=== PATIENT | female | born 1955 | race Caucasian/White ===

== ENCOUNTER → 2017-05-13 | Outpatient (CLI) | payer OTHER | LOC: BMCIMAGING 14:53 | PROVIDERS: ATTEND Family Medicine | DX: Z12.31 Encounter for screening mammogram for malignant neoplasm of breast (principal) | CPT/HCPCS: G0202 ==

== ENCOUNTER 2017-09-11 10:39 | Emergency (ER) | payer OTHER ==
[2017-09-11 10:56] VITALS: RESP 16; TEMP 98.6
[2017-09-11] MEDS ORDERED: PROPARACAINE 0.5% 15 ML OPHT DROP OP ONE (12:09)
--- NOTE | 2017-09-11 12:09 | EDPHY ---
H & P Time Seen by Provider: 09/11/17 12:09 HPI/ROS: CHIEF COMPLAINT: Decreased vision in left eye HISTORY OF PRESENT ILLNESS: Hit in the left eye with a basketball on August 13, was seen initially and then a week later and discharged. 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 She was hit in the left side of her head by a volleyball 2 days ago but did not have any visual symptoms until 24 hr ago when she started having flashes of light in the left visual field on her left eye. Today the flashes have decreased little bit but she has some spots and then now feels like she is"looking through wax paper"on the left eye. Vision is decreased. No foreign body sensation. REVIEW OF SYSTEMS: No headache, no fever or chills, no double vision. No neck pain. No trouble with speech balance motor sensory. 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 General Appearance: Alert, no distress. Visual acuity: noted from nursing notes. 20/20 right, 20/50 left. Lids and Lashes: No edema, no stye, no erythema. Conjunctivae: Not injected, no exudate. Sclera: No subconjunctival hemorrhage, no icterus. Pupils: Equal and round, normally reactive. Corneas: Left examined with fluoroscein, no uptake seen with slitlamp.Negative Zack test with fluoroscein. No foreign body on surface of cornea. Anterior chamber: normal, no hyphema or hypopyon. External: No proptosis, no periorbital swelling or redness or tenderness. Extraocular motion intact, pupils equal and reactive to light. Emergency Department course/MDM: Ophthalmology consult. History of eye trauma with but today with flashes and documented decrease in vision acuity. Discussed with Dr. Guadalupe will see the patient today at 1:45 p.m. In the office ; ophthalmology office for specialized equipment not available in the emergency department. Urgent follow-up for flashes and decreased acuity, concern for possible retinal injury or detachment, or vitreous hemorrhage. Smoking Status: Never smoked Constitutional: Initial Vital Signs Temperature (C) 37 C 09/11/17 10:53 Heart Rate 75 09/11/17 10:53 Respiratory Rate 16 09/11/17 10:53 Blood Pressure 156/75 H 09/11/17 10:53 O2 Sat (%) 98 09/11/17 10:53 O2 Delivery Mode Room Air Allergies/Adverse Reactions: Penicillins Allergy (Verified 09/11/17 10:53) Home Medications: Medication Instructions Recorded Levothyroxine 09/11/17 MDM/Departure - MDM Medications Given: Discontinued Medications Proparacaine HCl (Alcaine 0.5%) 1 drops OP EDNOW ONE Stop: 09/11/17 12:10 Last Admin: 09/11/17 12:18 Dose: Not Given - Depart Disposition: Home, Routine, Self-Care Clinical Impression: Decreased visual acuity left eye Condition: Good Instructions: Blurred Vision (ED) Referrals: Angela Holbrook MD [Primary Care Provider] - As per Instructions Teodoro Guadalupe MD [Medical Doctor] - 09/11/17 (meet Dr. Guadalupe at office at 1345 today for eyelet maker consultation.)
[2017-09-11] MEDS ORDERED: FLUORESCEIN SODIUM 1 MG STRIP OP ONE (12:10)
[2017-09-11 12:39] VITALS: BP 125/119; PULSE 68; O2SAT 97
== END 2017-09-11 12:38 | disposition home or self-care (01) ==
DX: H57.8 Other specified disorders of eye and adnexa (principal)